=== PATIENT | female | born 1950 | race Caucasian/White ===

== ENCOUNTER → 2020-07-05 10:31 | Outpatient (CLI) | payer MEDICARE, SELFPAY ==
--- NOTE | 2020-07-05 | DI.MG.S_ITS ---
BILATERAL DIGITAL SCREENING MAMMOGRAM 3D/2D WITH CAD: 07/05/2020 CLINICAL: Routine screening. Comparison is made to exams dated: 07/27/2017 mammogram, 06/29/2015 mammogram, 02/19/2013 mammogram, and 01/19/2011 mammogram - outside location. The tissue of both breasts is predominantly fatty. Current study was also evaluated with a Computer Aided Detection (CAD) system. No significant masses, calcifications, or other findings are seen in either breast. There has been no significant interval change. IMPRESSION: NEGATIVE There is no mammographic evidence of malignancy. A 1 year screening mammogram is recommended. This exam was interpreted at Station ID: [id number]. NOTE: For mammograms, a report in lay terms will be sent to the patient. Approximately 15% of breast malignancies will not be visualized mammographically. In the management of a palpable breast mass, a negative mammogram must not discourage biopsy of a clinically suspicious lesion. Electronically Signed By: Vinod [email or web address]/[email or web address]:07/05/2020 12:38:14 letter sent: Normal Exam ACR BI-RADS Category 1: Negative 3341F
== END ==
PROVIDERS: PCP Family Medicine; Referring Provider Family Medicine; Visit Provider Family Medicine
DX: Z12.31 Encounter for screening mammogram for malignant neoplasm of breast (principal)
CPT/HCPCS: 77063; 77067

== ENCOUNTER → 2021-10-14 13:06 | Outpatient (CLI) | payer MEDICARE, SELFPAY ==
--- NOTE | 2021-10-14 | DI.MG.S_ITS ---
BILATERAL DIGITAL SCREENING MAMMOGRAM 3D/2D WITH CAD: 10/14/2021 CLINICAL: Routine screening. Comparison is made to exams dated: 07/05/2020 mammogram - [facility], 07/27/2017 mammogram, and 06/29/2015 mammogram - outside location. The tissue of both breasts is predominantly fatty. Current study was also evaluated with a Computer Aided Detection (CAD) system. No significant masses, calcifications, or other findings are seen in either breast. There has been no significant interval change. IMPRESSION: NEGATIVE There is no mammographic evidence of malignancy. A 1 year screening mammogram is recommended. This exam was interpreted at Station ID: [id number]. NOTE: For mammograms, a report in lay terms will be sent to the patient. Approximately 15% of breast malignancies will not be visualized mammographically. In the management of a palpable breast mass, a negative mammogram must not discourage biopsy of a clinically suspicious lesion. Electronically Signed By: Cheyenne ortiz/puja:10/14/2021 14:19:52 letter sent: Normal Exam ACR BI-RADS Category 1: Negative 3341F
== END ==
PROVIDERS: PCP Family Medicine; Referring Provider Family Medicine; Visit Provider Family Medicine
DX: Z12.31 Encounter for screening mammogram for malignant neoplasm of breast (principal)
CPT/HCPCS: 77063; 77067

== ENCOUNTER → 2024-01-22 09:22 | Outpatient (CLI) | payer MEDICARE, SELFPAY ==
--- NOTE | 2024-01-22 09:25 | DI.ECHO.S_ITS ---
[facility] : : [id number] : : [place] : : [id number] : : Phone: [phone] Echocardiogram Report + + :Name: OSMIN NAVARRO Study Date: 01/22/2024 Height: 66 in : :Hospital ReadingLocation: Weight: 170 lb : : Gender: Female BSA: 1.9 m2 : :: 1950 Age: 73 yrs BP: 125/71 mmHg: :Reason For Study: LOWER EXTREMITY EDEMA : :Ordering Physician: BARRETT, : :CLARICE Performed By: Nora Montana : :Referring: CLARICE HYDE A : + + Interpretation Summary 1) Normal left ventricular thickness, size, wall motion, and systolic function (EF 55-60%). 2) Normal right ventricular size and function. 3) No significant valvular abnormalities. 4) No prior Echo available for comparison. Procedure: A two-dimensional transthoracic echocardiogram with color flow and Doppler was performed. The study quality was technically adequate. There is no prior echocardiogram noted for this patient. The patient was in sinus rhythm with heart rates between 65-75 bpm during the exam. Left Ventricle: The left ventricle is normal in size and wall thickness. The ejection fraction is estimated to be 55-60%. Left ventricular systolic function appears normal without focal wall motion abnormalities. Diastolic parameters suggest a relaxation abnormality of the left ventricle, consistent with probable normal filling pressures. Right Ventricle: The right ventricle is normal in size and function. Atria: The left atrial size is normal. Right atrial size is normal. There is no Doppler evidence for an interatrial shunt. Mitral Valve: The mitral valve is normal in structure and function. There is trace mitral regurgitation. Aortic Valve: The aortic valve is trileaflet. The aortic valve opens well. There is no aortic valve stenosis. No aortic regurgitation is present. Tricuspid Valve: The tricuspid valve is normal in structure and function. There is trace tricuspid regurgitation. Pulmonic Valve: The pulmonic valve leaflets are thin and pliable; valve motion is normal. There is no pulmonic valvular regurgitation. Great Vessels: The aortic root is normal size. The dimensions of the ascending aorta are normal. The IVC is of normal diameter and collapses greater than 50% with a sniff. This suggests a low right atrial pressure of 3 mm Hg. Pericardium/ Pleura There is no pericardial effusion. There is no pleural effusion. MMode/2D Measurements & Calculations LVIDd: 4.1 cm LVOT diam: 2.0 cm LVIDs: 2.8 cm Ao root diam: 2.9 cm FS: 30.7 % asc Aorta Diam: 3.5 cm IVSd: 0.76 cm Ao Arch Diam (Prox Trans): 2.9 cm LVPWd: 0.68 cm LV cooley. diameter/BSA (cm/m^2): 2.2 LV sys. diameter/BSA (cm/m^2): 1.5 LA A2 area: 16.2 cm2 RA long axis: 4.7 cm LA A4 area: 10.0 cm2 RA area: 13.4 cm2 LA length (vol): 3.9 cm RA vol: 32.5 ml LA vol: 35.3 ml RA : 17.4 ml/m2 LA vol index: 18.9 ml/m2 IVC diam: 0.95 cm RVD1 (basal): 3.3 cm TAPSE: 2.2 cm Doppler Measurements & Calculations Ao V2 max: 115.2 cm/sec LVOT Max Mohan: 77.5 cm/sec Ao V2 mean: 89.0 cm/sec LV V1 max P.4 mmHg Ao max P.3 mmHg LV V1 VTI: 18.1 cm Ao mean P.4 mmHg ANA LAURA(I,D): 2.2 cm2 Ao V2 VTI: 25.4 cm ANA LAURA(V,D): 2.1 cm2 sev ratio: 0.71 ANA LAURA indexed to BSA (cm^2/m^2): 1.2 MV E max mohan: 77.3 cm/sec TR max mohan: 193.9 cm/sec MV A max mohan: 92.5 cm/sec TR max P.0 mmHg MV E/A: 0.84 PA V2 max: 86.0 cm/sec Med Peak E' Mohan: 8.9 cm/sec PA V2 mean: 63.2 cm/sec E/E' med: 8.7 PA mean P.7 mmHg Lat Peak E' Mohan: 7.0 cm/sec PA pr(Accel): 39.6 mmHg E/E' lat: 11.0 E/e' average: 9.9 MV dec time: 0.27 sec SV(LVOT): 57.0 ml Reading Physician:11:38 AM
== END ==
PROVIDERS: PCP Family Medicine; Referring Provider Family Medicine; Visit Provider Family Medicine
DX: I10 Essential (primary) hypertension (principal); E78.41 Elevated Lipoprotein(a); J45.909 Unspecified asthma, uncomplicated; R60.0 Localized edema
CPT/HCPCS: 93306

== ENCOUNTER → 2024-10-07 09:32 | Outpatient (CLI) | payer MEDICARE, SELFPAY ==
--- NOTE | 2024-10-07 09:35 | DI.MG.S_ITS ---
MM screening mammo BI: 10/07/2024. BI-RADS: 1 CLINICAL: 74-year old female for bilateral screening mammogram. Tyrer-Cuzick lifetime risk of 2.1%. No personal or first-degree family history of breast cancer. PRIOR EXAMS 10/14/2021, 07/05/2020. MAMMOGRAPHY TECHNIQUE: 2D and 3D (tomosynthesis) digital mammographic views obtained, with additional images as needed for full coverage. Current study was also evaluated with a Computer Aided Detection (CAD) system. DENSITY B. There are scattered areas of fibroglandular density. MAMMOGRAPHY FINDINGS Bilateral: No suspicious mass, asymmetry, microcalcification, or other abnormality seen. IMPRESSION: * No evidence of malignancy. RECOMMENDATIONS Bilateral * Annual screening mammography. OVERALL ASSESSMENT CATEGORY BI-RADS-1: Negative. The [employer] recommends annual screening mammography beginning at age 40 for women with average risk of breast cancer. ELECTRONICALLY SIGNED: Varun Duque M.D. on 10/07/2024 at 10:46:14 AM PT Interpreting Station ID: [id number]
== END ==
PROVIDERS: PCP Family Medicine; Referring Provider Family Medicine; Visit Provider Family Medicine
DX: Z12.31 Encounter for screening mammogram for malignant neoplasm of breast (principal)
CPT/HCPCS: 77063; 77067